=== PATIENT | female | born 1945 | race Caucasian/White ===

== ENCOUNTER 2017-01-12 07:44 | Day surgery (SDC) | payer OTHER ==
[~2017-01-12] VITALS: Ht 162.6 cm; Wt 66.6 kg
[~2017-01-12 07:44] MED LIST: CYANOCOBAL1000 MCG/2 IM; FOCALIN XR10 MG PO; KEPPRA500 MG PO; LEVOTHYROXINE112 MCG PO; PROTONIX40 MG PO; PROZAC20 MG PO; TOPAMAX100 MG PO
[2017-01-12 08:30] LABS: HEMATOCRIT 37.3 % (36.0-46.0); MCH 28.9 PG (29.0-34.0); MCHC 30.3 G/DL (30.0-36.0); MCV 95.4 FL (83-99); MEAN PLAT.VOLUME 12.8 uM^3 (9.5-12.4); PLATELET COUNT 164 K/uL (156-360); RBC DIS.WIDTH-CV 13.7 % (11.8-14.6); RBC DIS.WIDTH-SD 48.5 % (39-53); RED BLOOD COUNT 3.91 M/uL (3.80-5.20); WHITE BLOOD COUNT 5.3 K/uL (4.1-10.2)
[2017-01-12 08:35] VITALS: BP 202/84
[2017-01-12 08:43] LABS: ALKALINE PHOSPHATASE 92 IU/L (3-129); ANION GAP 7 MEQ/L (2-14); CHLORIDE 112 MEQ/L (99-109); GFR ESTIMATE (CALCULATED) > 59 mL/min/; GLUCOSE 101 mg/dL (70-99); POTASSIUM 4.1 MEQ/L (3.7-5.4); SAMPLE HEMOLYSIS CHECK 0; SAMPLE ICTERIC CHECK 0; SAMPLE LIPEMIA CHECK 0; SODIUM 142 MEQ/L (136-147); TOTAL BILIRUBIN 0.2 MG/DL (0.0-1.0); UREA NITROGEN (BUN) 13 mg/dL (9-23)
[2017-01-12 11:10] VITALS: BP 168/75
[2017-01-12 12:14] VITALS: BP 183/80
== END 2017-01-12 12:37 | disposition home or self-care (01) ==
LOC: SDC 07:44
PROVIDERS: Ophthalmology
DX: H59.021 Cataract (lens) fragments in eye following cataract surgery, right eye (principal); S05.31XA Ocular laceration without prolapse or loss of intraocular tissue, right eye, initial encounter; H40.5 Glaucoma secondary to other eye disorders; J44.9 Chronic obstructive pulmonary disease, unspecified; E03.9 Hypothyroidism, unspecified; Z87.891 Personal history of nicotine dependence
CPT/HCPCS: 80053; 85027; J0690; J1100; J2405; J2795; J3010; J3300